=== PATIENT | female | born 1990 | race Caucasian/White ===

== ENCOUNTER 2017-03-24 19:56 | Emergency (ER) | payer OTHER ==
[2017-03-24 20:05] VITALS: BP 150/95; PULSE 76; TEMP 99.2; BMI 29.0
--- NOTE | 2017-03-24 20:33 | PDOC ---
History of Present Illness - General History Source: Patient Exam Limitations: No Limitations - History of Present Illness Initial Comments: 03/24/17 20:58 The patient is a 26 year old female with past medical history of hidradenitis who presents to the ED with open right axillary abscess which she found upon waking up this morning. The patient states that although she has multiple abscesses, she never experienced any of them open before. The patient states this one is more painful than the others and reports a yellow discharge. She reports also experiencing diaphoresis and chills today as well. 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 She reports trying to see her parking garage manager today but could not get an appointment. The patient denies any fever, nausea, vomiting, diarrhea, cough, SOB, or urinary complaints. <Brianna Walton - Last Filed: 03/24/17 20:58> <Idris Franz - Last Filed: 03/25/17 00:23> - General Chief Complaint: Abscess Boil Stated Complaint: RT UNDERARM ABSCESS Past History <Brianna Walton - Last Filed: 03/24/17 20:58> - Past Medical History Anemia: No Asthma: No Cancer: No Cardiac Disorders: No CVA: No COPD: No CHF: No Dementia: No Diabetes: No GI Disorders: No Disorders: No HTN: No Hypercholesterolemia: No Liver Disease: No Seizures: No Thyroid Disease: No Other medical history: HIDRADENITIS - Surgical History Abdominal Surgery: No Appendectomy: No Cardiac Surgery: No Cholecystectomy: No Lung Surgery: No Neurologic Surgery: No Orthopedic Surgery: No - Suicide/Smoking/Psychosocial Hx Smoking History: Current some day smoker Have you smoked in the past 12 months: Yes Number of Cigarettes Smoked Daily: 1 Information on smoking cessation initiated: Yes 'Breaking Loose' booklet given: 03/24/17 Hx Alcohol Use: No Drug/Substance Use Hx: No Substance Use Type: None Hx Substance Use Treatment: No <Idris Franz - Last Filed: 03/25/17 00:23> - Past Medical History Allergies/Adverse Reactions: Allergies Allergy/AdvReac Type Severity Reaction Status Date / Time No Known Allergies Allergy Verified 05/09/14 11:07 Home Medications: Ambulatory Orders Norethindrone-E.estradiol-Iron [Minastrin 24 Fe Chewable Tab] 1 tab PO DAILY Doxycycline Monohydrate [Mondoxyne Nl] 100 mg PO BID 03/24/17 Tramadol HCl 50 mg PO PRN PRN 03/24/17 Review of Systems - Review of Systems Able to Perform ROS?: Yes Comments:: 03/24/17 20:58 GENERAL/CONSTITUTIONAL: Present: chills, diaphoresis No fever. No weakness. HEAD, EYES, EARS, NOSE AND THROAT: No change in vision. No ear pain or discharge. No sore throat. CARDIOVASCULAR: No chest pain or shortness of breath. RESPIRATORY: No cough, wheezing, or hemoptysis. GASTROINTESTINAL: No nausea, vomiting, diarrhea or constipation. GENITOURINARY: No dysuria, frequency, or change in urination. MUSCULOSKELETAL: No joint or muscle swelling or pain. No neck or back pain. SKIN: Present: open abscess under right axilla No rash NEUROLOGIC: No headache, vertigo, loss of consciousness, or change in strength/ sensation. ENDOCRINE: No increased thirst. No abnormal weight change. HEMATOLOGIC/LYMPHATIC: No anemia, easy bleeding, or history of blood clots. ALLERGIC/IMMUNOLOGIC: No hives or skin allergy. All Other Systems: Reviewed and Negative <Brianna Walton - Last Filed: 03/24/17 20:58> *Physical Exam - Vital Signs Last Vital Signs Temp Pulse Resp BP Pulse Ox 99.2 F 76 16 150/95 98 03/24/17 20:03 03/24/17 20:03 03/24/17 20:03 03/24/17 20:03 03/24/17 20:03 - Physical Exam Comments: 03/24/17 21:00 GENERAL: Awake, alert, and fully oriented, in no acute distress HEAD: No signs of trauma EYES: PERRLA, EOMI, sclera anicteric, conjunctiva clear ENT: Auricles normal inspection, hearing grossly normal, nares patent, oropharynx clear without exudates. Moist mucosa NECK: Normal ROM, supple, no lymphadenopathy, JVD, or masses LUNGS: Breath sounds equal, clear to auscultation bilaterally. No wheezes, and no crackles HEART: Regular rate and rhythm, normal S1 and S2, no murmurs, rubs or gallops ABDOMEN: Soft, nontender, normoactive bowel sounds. No guarding, no rebound. No masses EXTREMITIES: Normal range of motion, no edema. No clubbing or cyanosis. No cords, erythema, or tenderness NEUROLOGICAL: Cranial nerves II through XII grossly intact. Normal speech, normal gait SKIN: 3mm opening with scant discharge. Mild surrounding tenderness, no surrounding erythema. No fluctuance. Normal turgor, no rashes <Brianna Walton - Last Filed: 03/24/17 20:58> - Vital Signs Last Vital Signs Temp Pulse Resp BP Pulse Ox 99.2 F 76 16 150/95 98 03/24/17 20:03 03/24/17 20:03 03/24/17 20:03 03/24/17 20:03 03/24/17 20:03 <Idris Franz - Last Filed: 03/25/17 00:23> Medical Decision Making - Medical Decision Making 03/25/17 00:22 HS with acute exacerbation. wound care. continue abx. Referred back to derm for ?steroid injections. Shaking chills at home without source on PE. Instructed to return to ED for recurrence of fevers and associated symptoms <Idris Franz - Last Filed: 03/25/17 00:23> *DC/Admit/Observation/Transfer - Attestations Scribe Attestion: 03/24/17 21:02 Documentation prepared by Brianna Walton, acting as medical recruiter for Idris Franz MD. <Brianna Walton - Last Filed: 03/24/17 20:58> <Idris Franz - Last Filed: 03/25/17 00:23> Diagnosis at time of Disposition: Hidradenitis suppurativa - Discharge Dispostion Disposition: HOME Condition at time of disposition: Stable - Referrals Referrals: Celso Paige MD [Primary Care Provider] - 2 Days - Patient Instructions Additional Instructions: Return to ER for high fever, increased redness, worsening of symptoms - Post Discharge Activity
== END 2017-03-24 20:45 | disposition home or self-care (01) ==
LOC: FER 19:56
DX: L73.2 Hidradenitis suppurativa (principal)
CPT/HCPCS: 87070; 87186; 87205; 99282-25

== ENCOUNTER 2022-05-09 10:09 | Emergency (ER) | payer OTHER ==
[2022-05-09] MEDS ORDERED: predniSONE 20 MG TABLET (UD) PO ONE (10:26)
[2022-05-09] MEDS ORDERED: FAMOTIDINE 20 MG TABLET PO ONE (10:26)
[2022-05-09] MEDS ORDERED: diphenhydrAMINE HCL 50 MG CAPSULE PO ONE (10:26)
[2022-05-09 10:28] VITALS: BP 151/98; PULSE 80; RESP 20; TEMP 98.4; BMI 32.3
[2022-05-09] MEDS ORDERED: predniSONE 20 MG TABLET (UD) ONE (10:29)
[2022-05-09] MEDS ORDERED: diphenhydrAMINE HCL 50 MG CAPSULE ONE (10:30)
[2022-05-09] MEDS ORDERED: FAMOTIDINE 20 MG TABLET ONE (10:30)
[2022-05-09] MEDS ORDERED: diphenhydrAMINE HCL 25 MG CAPSULE (FP) PO ONE (10:31)
== END 2022-05-09 11:39 | disposition home or self-care (01) ==
LOC: FER 10:09
DX: T78.40XA Allergy, unspecified, initial encounter (principal)
CPT/HCPCS: 99283-25